=== PATIENT | female | born 1955 | race Caucasian/White ===

== ENCOUNTER 2020-03-12 15:31 | Emergency (ER) | payer OTHER ==
[~2020-03-12] VITALS: Ht 165.1 cm; Wt 83.4 kg
[2020-03-12 16:12] LABS: BASO # 0.1 x10^3/uL (0.0-0.2); BASO % 1 % (0-3); EOS # 0.3 x10^3/uL (0.0-0.7); EOS % 2 % (0-3); HEMATOCRIT 41.2 % (36.0-47.0); HEMOGLOBIN 14.4 g/dL (12.0-15.5); LYMPH # 4.4 x10^3/uL (1.0-4.8); LYMPH % 32 % (24-48); MEAN CORPUSCULAR HEMOGLOBIN 31 pg (25-35); MEAN CORPUSCULAR HGB CONC 35 g/dL (31-37); MEAN CORPUSCULAR VOLUME 89 fL (79-100); MONO # 0.8 x10^3/uL (0.0-1.1); MONO % 6 % (0-9); NEUT # 7.9 x10^3/uL (1.8-7.7); NEUT % 59 % (31-73); PLATELET COUNT 317 x10^3/uL (140-400); RED BLOOD COUNT 4.65 x10^6/uL (3.50-5.40); WHITE BLOOD COUNT 13.5 x10^3/uL (4.0-11.0)
[2020-03-12 16:19] LABS: PROTHROMBIN TIME PATIENT 11.7 SEC (11.7-14.0)
[2020-03-12 16:22] LABS: CALCIUM 9.9 mg/dL (8.5-10.1); CREATININE 0.8 mg/dL (0.6-1.0); GFR 72.4; POTASSIUM 4.8 mmol/L (3.5-5.1)
[2020-03-12 16:27] LABS: ALBUMIN 4.3 g/dL (3.4-5.0); ALBUMIN/GLOBULIN RATIO 1.3 (1.0-1.7); TOTAL BILIRUBIN 0.4 mg/dL (0.2-1.0); TOTAL PROTEIN 7.5 g/dL (6.4-8.2)
--- NOTE | 2020-03-12 16:34 | RAD ---
EXAM: AP View of the chest DATE: 03/12/2020 3:58 PM INDICATION: stroke protocol.neurologic changes. COMPARISON: No Prior FINDINGS: The heart is not enlarged. Mediastinal and hilar contours are normal. No focal parenchymal airspace opacity. No pleural effusion or pneumothorax. Sclerotic focus proximal right humerus is not well-seen possibly low-grade cartilaginous lesion like enchondroma. IMPRESSION: 1. No radiographic evidence for acute cardiopulmonary process. Electronically signed by: Daniel Mcduffie MD (03/12/2020 4:31 PM) [facility]
--- NOTE | 2020-03-12 16:57 | RAD ---
EXAM: CT Head without IV contrast CLINICAL HISTORY: visual changes left eye blurry COMPARISON: None. TECHNIQUE: Routine CT of the head without contrast. PQRS compliance statement - One or more of the following individualized dose reduction techniques were utilized for this study: 1. Automated exposure control 2. Adjustment of the mA and/or kV according to patient size 3. Use of iterative reconstruction technique FINDINGS: There is no evidence of hemorrhage, mass or extra-axial fluid collection. Alarcon-white differentiation is maintained with no evidence of edema. There is no mass effect or shift of the intracranial structures. The ventricles, basilar cisterns and cortical sulci are normal in size and configuration for the patients stated age. The cerebellum and brainstem are unremarkable. The calvarium demonstrates no evidence of fracture or focal lesion. There is normal aeration of the visualized paranasal sinuses and mastoid air cells. The visualized portions of the orbits are normal. Atherosclerotic calcifications of the intracranial internal carotid and vertebral arteries is seen. IMPRESSION: No evidence for acute intracranial process. Electronically signed by: Daniel Mcduffie MD (03/12/2020 4:54 PM) [facility]A
--- NOTE | 2020-03-12 16:58 | ED.ADGEN ---
Past Medical History Past Medical History: Anxiety, Diabetes-Type II, Fibromyalgia, Hypertension, Hypothyroid Past Surgical History: Other Additional Past Surgical Histo: right carpel tunnel, L lumpectomy Smoking Status: Current Every Day Smoker Alcohol Use: Rarely General Adult EDM: Chief Complaint: BLURRED/DOUBLE VISION HPI: HPI: Patient is a 64-year-old female who presents to the emergency room complaining of blurred vision with cobwebs in her left eye. She initially had floaters yesterday and then woke up today with this cobweb looking through a curtain vision. She is never had visual changes before. She does have diabetes and hypertension. She denies any other neurologic deficits. She does not have any peripheral visual changes. She is able to make out shapes and nothing looks too big or small. She cannot make out features. Review of Systems: Review of Systems: Complete ROS is negative unless otherwise documented in HPI Physical Exam: PE: General: Awake, alert, NAD. Well Nourished, well hydrated. Cooperative HEENT: Atraumatic, EOMI, PERRL, airway patent, moist oral mucosa, Neck: Supple, trachea midline Respiratory: CTA bilaterally, normal effort, no wheezing/crackles CV: RRR, no murmur, cap refill <2 GI: Soft, nondistended, nontender, no masses MSK: No obvious deformities Skin: Warm, dry, intact Neuro: A&O x3, speech NL, 5/5 strength in BUE/BLE distally and proximally, CN 2- 12 intact, cerebellar testing normal, intact peripheral vision, decreased vision in left eye Psych: Normal affect, normal mood, not suicidal or homicidal Current Patient Data: Labs: Laboratory Tests Test 03/12/20 15:45 03/12/20 16:05 Glucose (Fingerstick) 135 mg/dL (70-99) H White Blood Count 13.5 x10^3/uL (4.0-11.0) H Red Blood Count 4.65 x10^6/uL (3.50-5.40) Hemoglobin 14.4 g/dL (12.0-15.5) Hematocrit 41.2 % (36.0-47.0) Mean Corpuscular Volume 89 fL (79-100) Mean Corpuscular Hemoglobin 31 pg (25-35) Mean Corpuscular Hemoglobin Concent 35 g/dL (31-37) Red Cell Distribution Width 13.0 % (11.5-14.5) Platelet Count 317 x10^3/uL (140-400) Neutrophils (%) (Auto) 59 % (31-73) Lymphocytes (%) (Auto) 32 % (24-48) Monocytes (%) (Auto) 6 % (0-9) Eosinophils (%) (Auto) 2 % (0-3) Basophils (%) (Auto) 1 % (0-3) Neutrophils # (Auto) 7.9 x10^3/uL (1.8-7.7) H Lymphocytes # (Auto) 4.4 x10^3/uL (1.0-4.8) Monocytes # (Auto) 0.8 x10^3/uL (0.0-1.1) Eosinophils # (Auto) 0.3 x10^3/uL (0.0-0.7) Basophils # (Auto) 0.1 x10^3/uL (0.0-0.2) Prothrombin Time 11.7 SEC (11.7-14.0) Prothrombin Time INR 0.9 (0.8-1.1) Sodium Level 132 mmol/L (136-145) L Potassium Level 4.8 mmol/L (3.5-5.1) Chloride Level 96 mmol/L (98-107) L Carbon Dioxide Level 24 mmol/L (21-32) Anion Gap 12 (6-14) Blood Urea Nitrogen 14 mg/dL (7-20) Creatinine 0.8 mg/dL (0.6-1.0) Estimated GFR (Cockcroft-Gault) 72.4 BUN/Creatinine Ratio 18 (6-20) Glucose Level 137 mg/dL (70-99) H Calcium Level 9.9 mg/dL (8.5-10.1) Total Bilirubin 0.4 mg/dL (0.2-1.0) Aspartate Amino Transferase (AST) 13 U/L (15-37) L Alanine Aminotransferase (ALT) 18 U/L (14-59) Alkaline Phosphatase 82 U/L (46-116) Troponin I Quantitative < 0.017 ng/mL (0.000-0.055) Total Protein 7.5 g/dL (6.4-8.2) Albumin 4.3 g/dL (3.4-5.0) Albumin/Globulin Ratio 1.3 (1.0-1.7) Laboratory Tests 03/12/20 16:05 Laboratory Tests 03/12/20 16:05 Vital Signs: Vital Signs Date Time Temp Pulse Resp B/P (MAP) Pulse Ox O2 Delivery O2 Flow Rate FiO2 03/12/20 18:13 75 130/61 (84) 98 03/12/20 15:48 97.8 18 Room Air 97.8 EKG: EKG: [] Heart Score: Risk Factors: Risk Factors: DM, Current or recent (<one month) smoker, HTN, HLP, family history of CAD, obesity. Risk Scores: Score 0 - 3: 2.5% MACE over next 6 weeks - Discharge Home Score 4 - 6: 20.3% MACE over next 6 weeks - Admit for Clinical Observation Score 7 - 10: 72.7% MACE over next 6 weeks - Early Invasive Strategies Radiology/Procedures: Radiology/Procedures: [] Course & Med Decision Making: Course & Med Decision Making Pertinent Labs and Imaging studies reviewed. (See chart for details) Patient is a 64-year-old female who presents to the emergency room with increased blurred vision. Work-up was done to rule out stroke and was negative. She is more than 24 hours out. I discussed the case with Dr. Mishra the field foreman. He states that he believes she has a vitreous tear. He states that she can call the office and he can see her on Monday in clinic. She will need a full eye exam. She does not need any kind of drops over the weekend. I discussed return precautions with the field foreman and have passed these along to the patient. Patient's test results and vitals while in the ED were fully reviewed and discussed with the patient. Patient is stable and at this time does not need admission to the hospital. We have discussed strict return precautions and the importance of following up with their Primary Care Jennifer smith. Patient stated understanding and was given an opportunity to ask any questions. Patient is in agreement with plan. Dragon Disclaimer: Dragon Disclaimer: This electronic medical record was generated, in whole or in part, using a voice recognition dictation system. Departure Departure Impression: Primary Impression: Blurred vision Disposition: 01 DC HOME SELF CARE/HOMELESS Condition: STABLE Referrals: TUCKER MORALES MD (PCP) TANIA MARTINEZ MD Please follow up on Monday. If symptoms worsen please call office over the weekend. If you have complete loss of vision or are unable to make out shapes please return to Emergency Room Patient Instructions: Eye - Blurred Vision, Eye - Vitreous Detachment STUART FIGUEREDO MD Mar 12, 2020 16:58
[2020-03-12 18:13] VITALS: BP 130/61
--- NOTE | 2020-03-16 08:12 | EKG ---
[facility] [address] [place] [address] Test Date: 2020-03-12 Test Time: 15:54:07 Pat Name: ABBEY HERNANDEZ Department: Room: Gender: F Materials Handler: : [id number] Requested By: STUART FIGUEREDO Order Number: [id number] Reading MD: Measurements Intervals [place] Rate: 89 P: 58 LA: 144 QRS: 23 QRSD: 96 T: 99 QT: 360 QTc: 444 Interpretive Statements SINUS RHYTHM VENTRICULAR PREMATURE COMPLEX(ES) T ABNORMALITY IN HIGH LATERAL LEADS ABNORMAL ECG RI6.02 No previous ECG available for comparison
== END 2020-03-12 18:27 | disposition home or self-care (01) ==
LOC: ER 15:31
DX: H53.8 Other visual disturbances (principal); E11.9 Type 2 diabetes mellitus without complications; I10 Essential (primary) hypertension; E03.9 Hypothyroidism, unspecified; F17.200 Nicotine dependence, unspecified, uncomplicated
CPT/HCPCS: 36415; 70450; 71045; 80053; 82962; 84484; 85025; 85610; 93005; 99285-25